=== PATIENT | female | born 1990 | race African-American/Black ===

== ENCOUNTER 2017-12-12 23:08 | Emergency (ER) | payer SELFPAY ==
[2017-12-12] MEDS ORDERED: Ibuprofen 200 MG TAB ONE (23:31)
== END 2017-12-12 23:29 | disposition home or self-care (01) ==
LOC: BURERS 23:08
DX: G44.209 Tension-type headache, unspecified, not intractable (principal)
CPT/HCPCS: 99283

== ENCOUNTER 2018-01-31 09:21 | Emergency (ER) | payer SELFPAY ==
[2018-01-31] MEDS ORDERED: Ondansetron ODT 4 MG TAB ONE (09:44)
== END 2018-01-31 09:51 | disposition home or self-care (01) ==
LOC: BURERS 09:21
DX: R11.2 Nausea with vomiting, unspecified (principal); R19.7 Diarrhea, unspecified; F41.9 Anxiety disorder, unspecified; F32.9 Major depressive disorder, single episode, unspecified
CPT/HCPCS: 99283; Q0162